=== PATIENT | male | born 1960 | race Caucasian/White ===

== ENCOUNTER 2019-05-08 19:10 | Emergency (ER) | payer OTHER, SELFPAY ==
[2019-05-08 19:30] VITALS: BP 167/89; PULSE 66; RESP 17; TEMP 36.5; O2SAT 100
--- NOTE | 2019-05-08 19:51 | ED.LOWEXIN ---
HPI - Extremity Injury (Lower) General Chief Complaint: Extremity Injury, Lower Stated Complaint: R/knee pain/Hip pain Time Seen by Provider: 05/08/19 19:45 Source: patient and RN notes reviewed Mode of arrival: ambulatory Limitations: no limitations History of Present Illness HPI Narrative: Patient presents today complaining of right leg and hip pain. He was getting into a truck and twisted his leg today while stepping up. Pain radiates to the posterior hip with ambulation. Denies numbness or tingling in the leg or foot. Currently rates his pain 3/10 at rest, which increases to 8/10 with ambulation. He has been taking Tylenol and [facility]. MD complaint: leg injury Related Data Home Medications Medication Instructions Recorded Confirmed bupropion HCl 150 mg PO BID 05/08/19 05/08/19 escitalopram oxalate 20 mg PO DAILY 05/08/19 05/08/19 fenofibrate nanocrystallized 145 mg PO DAILY 05/08/19 05/08/19 hydrochlorothiazide 25 mg PO DAILY 05/08/19 05/08/19 meloxicam 15 mg PO DAILY 05/08/19 05/08/19 metoprolol succinate 50 mg PO DAILY 05/08/19 05/08/19 Allergies Allergy/AdvReac Type Severity Reaction Status Date / Time No Known Allergies Allergy Verified 05/08/19 19:38 Review of Systems Review of Systems: Narrative: CONSTITUTIONAL: Denies body aches, fever, chills, or sweats. EYES: Denies visual changes, redness, or discharge. ENT: Denies rhinorrhea, congestion, sore throat, or otalgia. CARDIOVASCULAR: Denies chest pain, palpitations, or edema. RESPIRATORY: Denies cough or dyspnea. GASTROINTESTINAL: Denies abdominal pain, nausea, vomiting, or diarrhea. GENITOURINARY: Denies dysuria or hematuria. SKIN: Denies rash, itching, or wounds. MUSCULOSKELETAL: Denies back pain, joint pain. + Right upper leg pain NEUROLOGIC: Denies headache, numbness, tingling, or weakness. PSYCH: Denies depression or anxiety. PMFSH Comments At time of signature, I have reviewed and agree with nursing past medical, surgical, social and family history unless otherwise noted. Please see nursing chart for further information. There is no relevant family history pertinent to the presenting complaint Exam Narrative: Exam Narrative: GENERAL: Well-appearing, well-nourished, and in no acute distress. HEAD: Normocephalic, atraumatic. EYES: EOMI. No redness or drainage. Conjunctivae normal. ENT: Mucous membranes pink and moist. Nares clear. No rhinorrhea. TMs normal bilaterally. Throat normal. Uvula midline. NECK: Normal AROM. Supple. No lymphadenopathy. CHEST: No respiratory distress. Clear to auscultation. HEART: Regular rate and rhythm. No murmur appreciated. Normal peripheral pulses. ABDOMEN: Soft, nontender, nondistended, normal active bowel sounds. MUSCULOSKELETAL: No bony tenderness. EXTREMITIES: Soft tissue tenderness to the right posterior hip, lateral hip extending to the lateral thigh. No bony tenderness. Distal sensation intact. Capillary refill normal. Full AROM with increased pain. Foot push and pulls normal. SKIN: Warm, dry, no rash. NEURO: No focal deficits. Alert and oriented x3. Gait steady. PSYCH: Normal affect. No signs of depression or anxiety. Course Vital Signs Vital signs: Vital Signs Temperature 97.7 F 05/08/19 19:30 Pulse Rate 66 05/08/19 19:30 Respiratory Rate 17 05/08/19 19:30 Blood Pressure 167/89 H 05/08/19 19:30 Pulse Oximetry 100 05/08/19 19:30 Temperature 97.7 F 05/08/19 19:30 Pulse Rate 66 05/08/19 19:30 Respiratory Rate 17 05/08/19 19:30 Blood Pressure 167/89 H 05/08/19 19:30 Pulse Oximetry 100 05/08/19 19:30 Reviewed. Pt has been instructed to follow up with his PCP regarding his elevated blood pressure today. MDM - Extremity Injury (Lower) Differential Diagnosis Differential diagnosis: Likely other (Hip strain, knee strain, muscle strain, muscle spasm) Critical Care Time Critical Care Time Critical Care Time: No Discharge Plan Discharge Clinic
== END 2019-05-08 20:00 | disposition home or self-care (01) ==
PROVIDERS: Emergency Provider Nurse Practitioner
DX: S86.911A Strain of unspecified muscle(s) and tendon(s) at lower leg level, right leg, initial encounter (principal); X50.9XXA Other and unspecified overexertion or strenuous movements or postures, initial encounter; I10 Essential (primary) hypertension; F32.9 Major depressive disorder, single episode, unspecified
CPT/HCPCS: 99213; G0463

== ENCOUNTER 2020-01-03 16:39 | Emergency (ER) | payer OTHER, SELFPAY ==
[2020-01-03 16:50] VITALS: BP 166/89; PULSE 86; RESP 20; TEMP 36.9; O2SAT 99
--- NOTE | 2020-01-03 17:19 | ED.EXTPRO ---
HPI - Extremity Problem General Chief complaint: Extremity Injury, Lower Stated complaint: Left Knee Pain Time Seen by Provider: 01/03/20 17:02 Source: patient and RN notes reviewed Mode of arrival: ambulatory Limitations: no limitations History of Present Illness HPI Narrative: Patient presents today complaining of a 2-week history of left knee pain that has worsened over the last 4 days. States he does have significant arthritis in the left knee, but has never been told that he needs a knee replacement. He has been attempting to get into see an orthopedist, but has had some insurance changes recently and has not been able to get an appointment yet. Currently rates his pain 8?10. He has been trying ice, Tylenol, and takes meloxicam and Flexeril daily, none of which are helping. Pain wakes him up from sleep. Related Data Home Medications Medication Instructions Recorded Confirmed bupropion HCl 150 mg PO BID 05/08/19 05/08/19 escitalopram oxalate 20 mg PO DAILY 05/08/19 05/08/19 fenofibrate nanocrystallized 145 mg PO DAILY 05/08/19 05/08/19 hydrochlorothiazide 25 mg PO DAILY 05/08/19 05/08/19 meloxicam 15 mg PO DAILY 05/08/19 05/08/19 metoprolol succinate 50 mg PO DAILY 05/08/19 05/08/19 Allergies Allergy/AdvReac Type Severity Reaction Status Date / Time No Known Allergies Allergy Verified 05/08/19 19:38 Review of Systems Review of Systems: Narrative: CONSTITUTIONAL: Denies body aches, fever, chills, or sweats. EYES: Denies visual changes, redness, or discharge. ENT: Denies rhinorrhea, congestion, sore throat, or otalgia. CARDIOVASCULAR: Denies chest pain, palpitations, or edema. RESPIRATORY: Denies cough or dyspnea. GASTROINTESTINAL: Denies abdominal pain, nausea, vomiting, or diarrhea. GENITOURINARY: Denies dysuria or hematuria. SKIN: Denies rash, itching, or wounds. MUSCULOSKELETAL: Denies back pain, or myalgia + left knee pain. NEUROLOGIC: Denies headache, numbness, tingling, or weakness. PSYCH: Denies depression or anxiety. [facility] Past Medical History Medical History (Updated 01/03/20 @ 17:53 by Batsheva Mohamud, [employer], ) Degenerative disc disease Hypertension Osteoarthritis Comments At time of signature, I have reviewed and agree with nursing past medical, surgical, social and family history unless otherwise noted. Please see nursing chart for further information. There is no relevant family history pertinent to the presenting complaint Exam Narrative: Exam Narrative: GENERAL: Well-appearing, well-nourished, and in no acute distress. HEAD: Normocephalic, atraumatic. EYES: EOMI. No redness or drainage. Conjunctivae normal. ENT: Mucous membranes pink and moist. NECK: Normal AROM. CHEST: No respiratory distress. EXTREMITIES: Left knee: Tenderness to the medial joint line. No posterior knee tenderness. No lateral joint tenderness. No tenderness to the patellar tendon. No abnormal movement of the patella. No effusion or edema noted. No erythema or warmth noted. Distal sensation intact. Capillary refill normal. No color change noted. Full range of motion. SKIN: Warm, dry, no rash. Capillary refill normal. Normal skin turgor. NEURO: No focal deficits. Alert and oriented x3. Gait steady. PSYCH: Normal affect. No signs of depression or anxiety. Course Vital Signs Vital signs: Vital Signs Temperature 98.4 F 01/03/20 16:50 Pulse Rate 86 01/03/20 16:50 Respiratory Rate 20 01/03/20 16:50 Blood Pressure 166/89 H 01/03/20 16:50 Pulse Oximetry 99 01/03/20 16:50 Temperature 98.4 F 01/03/20 16:50 Pulse Rate 86 01/03/20 16:50 Respiratory Rate 20 01/03/20 16:50 Blood Pressure 166/89 H 01/03/20 16:50 Pulse Oximetry 99 01/03/20 16:50 Reviewed. Pt has been instructed to follow up with his PCP regarding his elevated blood pressure today. MDM - Extremity (Nontraumatic) Differential Diagnosis Differential diagnosis: Likely gout, cellulitis, lower extremity
== END 2020-01-03 17:28 | disposition home or self-care (01) ==
PROVIDERS: Emergency Provider Nurse Practitioner; PCP Family Medicine Sports Medicine
DX: M17.12 Unilateral primary osteoarthritis, left knee (principal); I10 Essential (primary) hypertension
CPT/HCPCS: 99213; G0463

== ENCOUNTER 2020-05-05 13:38 | Emergency (ER) | payer OTHER, SELFPAY ==
--- NOTE | ~2020-05-05 | XR_ITS ---
EXAMINATION: XR ankle RT min 3V, XR foot RT min 3V EXAM DATE: 05/05/2020 14:34 INDICATION: No known recent injury provided at this time. Pain of the right foot, ankle, heel. TECHNIQUE: Right foot dorsoplantar, lateral and oblique projections obtained and reviewed. Right ank le frontal, lateral and oblique projections obtained and reviewed. There is no prior study for geoff joshua. FINDINGS: Right metatarsal bones unremarkable. The right ankle mortise appears intact. Tiny infer ior calcaneal spur. There are no acute fractures or dislocations identified. There is no subcutaneou s gas. The soft tissue is unremarkable. There are no radiopaque foreign bodies. No periosteal roselia ction or band of sclerosis to suggest subacute stress fracture. There are no bony erosions identified . IMPRESSION: Tiny right calcaneal inferior spur. Reviewed, dictated and finalized at location B. L LAYER IMPRESSION: Tiny right calcaneal inferior spur.
[2020-05-05 13:41] VITALS: BP 144/78; PULSE 74; RESP 20; TEMP 36.3; O2SAT 97
--- NOTE | 2020-05-05 15:21 | ED.GENADULT ---
HPI - General Adult General Chief complaint: Extremity Injury, Lower Stated complaint: r ankle pain Time Seen by Provider: 05/05/20 13:48 Source: patient Mode of arrival: ambulatory Limitations: no limitations History of Present Illness HPI narrative: Patient is a 60-year-old male who presents with several days duration of right heel pain noting pain localized to the plantar surface and posterior aspect of the right heel denies injury or trauma or similar occurrence pain is worse with weightbearing and running. Patient denies redness swelling or deformity or radiation of pain Related Data Home Medications Medication Instructions Recorded Confirmed bupropion HCl 150 mg PO BID 05/08/19 05/08/19 escitalopram oxalate 20 mg PO DAILY 05/08/19 05/08/19 fenofibrate nanocrystallized 145 mg PO DAILY 05/08/19 05/08/19 hydrochlorothiazide 25 mg PO DAILY 05/08/19 05/08/19 meloxicam 15 mg PO DAILY 05/08/19 05/08/19 metoprolol succinate 50 mg PO DAILY 05/08/19 05/08/19 allopurinol 05/05/20 05/05/20 amlodipine 05/05/20 Allergies Allergy/AdvReac Type Severity Reaction Status Date / Time No Known Allergies Allergy Verified 05/05/20 13:46 Review of Systems Review of Systems: All systems reviewed & are unremarkable except as noted in HPI and below PMFSH Past Medical History Medical History Degenerative disc disease Hypertension Osteoarthritis Social History Social History Gender identity (if verbalized by the patient): Male Exam Narrative: Exam Narrative: GENERAL: Well-appearing, well-nourished, and in no acute distress. HEAD: Normocephalic, atraumatic. EYES: PERRLA and EOMI. ENT: Nares clear, no rhinorrhea or epistaxis. Mucous membranes moist. EXTREMITIES: Normal range of motion. No edema. Tenderness of the right posterior and plantar aspect of the heel no other deformities or findings noted on exam SKIN: Warm, dry, no rash. NEURO: No focal deficits. Alert and oriented x3. Neurovascularly intact PSYCH: Normal mood and affect. Course Course Emergency Course: Patient evaluated in the emergency department found to have heel spurs the likely etiology of his symptoms will be discharged with podiatry follow-up Vital Signs Vital signs: Vital Signs Temperature 97.4 F L 05/05/20 13:41 Pulse Rate 74 05/05/20 13:41 Respiratory Rate 20 05/05/20 13:41 Blood Pressure 144/78 H 05/05/20 13:41 Pulse Oximetry 97 05/05/20 13:41 Temperature 97.4 F L 05/05/20 13:41 Pulse Rate 74 05/05/20 13:41 Respiratory Rate 20 05/05/20 13:41 Blood Pressure 144/78 H 05/05/20 13:41 Pulse Oximetry 97 05/05/20 13:41 Medical Decision Making MDM Narrative Medical decision making narrative: Patients injury or pain is consistent with musculoskeletal etiology. No signs of neurological or vascular compromise on exam. Compartments and tisues are soft without signs of compartment syndrome. Pain is felt appropriate for further evaluation on an outpatient basis. Vital Signs Vital Signs: Vital Signs Temperature 97.4 F L 05/05/20 13:41 Pulse Rate 74 05/05/20 13:41 Respiratory Rate 20 05/05/20 13:41 Blood Pressure 144/78 H 05/05/20 13:41 Pulse Oximetry 97 05/05/20 13:41 Temperature 97.4 F L 05/05/20 13:41 Pulse Rate 74 05/05/20 13:41 Respiratory Rate 20 05/05/20 13:41 Blood Pressure 144/78 H 05/05/20 13:41 Pulse Oximetry 97 05/05/20 13:41 Imaging Data Radiologist's impression: ITS Impressions Ankle X-Ray 05/05/20 14:38 IMPRESSION: Tiny right calcaneal inferior spur. Foot X-Ray 05/05/20 14:38 IMPRESSION: Tiny right calcaneal inferior spur. Discharge Plan Discharge Clinical Impression: Acute right ankle pain Patient Disposition: Home, Self-Care Condition: Stable Instructions: Antibiotic Form, Arthralgia (ED) Additional Instru
== END 2020-05-05 15:46 | disposition home or self-care (01) ==
PROVIDERS: Emergency Provider Emergency Medicine; PCP Family Medicine Sports Medicine
DX: M25.571 Pain in right ankle and joints of right foot (principal); I10 Essential (primary) hypertension; M19.90 Unspecified osteoarthritis, unspecified site
CPT/HCPCS: 73610; 73630; 99283

== ENCOUNTER 2021-05-26 13:50 | Emergency (ER) | payer OTHER, SELFPAY ==
[2021-05-26 14:42] VITALS: BP 130/84; PULSE 71; RESP 20; TEMP 36.6; O2SAT 100
--- NOTE | 2021-05-26 14:43 | ED.EAR ---
HPI - Ear Problem General Chief complaint: Ear Stated complaint: Left Ear Pain Time Seen by Provider: 05/26/21 14:43 Source: patient Mode of arrival: ambulatory Limitations: no limitations History of Present Illness HPI Narrative: 61-year-old male presents with left ear pain for 2 weeks. History of psoriasis, psoriasis rash around ears and inside ears. States that he applies Vaseline. Has used steroid cream and does not help. Now has pain to neck below left ear. Afebrile Systems reviewed and negative except as noted above. Related Data Home Medications Medication Instructions Recorded Confirmed bupropion HCl 150 mg PO BID 05/08/19 05/08/19 escitalopram oxalate 20 mg PO DAILY 05/08/19 05/08/19 fenofibrate nanocrystallized 145 mg PO DAILY 05/08/19 05/08/19 hydrochlorothiazide 25 mg PO DAILY 05/08/19 05/08/19 meloxicam 15 mg PO DAILY 05/08/19 05/08/19 metoprolol succinate 50 mg PO DAILY 05/08/19 05/08/19 allopurinol 05/05/20 05/05/20 amlodipine 05/05/20 hydrochlorothiazide 05/26/21 Allergies Allergy/AdvReac Type Severity Reaction Status Date / Time No Known Allergies Allergy Verified 05/05/20 13:46 Review of Systems Review of Systems: CONSTITUTIONAL: Denies fever, chills, or sweats. EYES: Denies visual changes, redness, or discharge. ENT: Denies rhinorrhea, congestion, sore throat. Reports left ear pain CARDIOVASCULAR: Denies chest pain, palpitations, or edema. RESPIRATORY: Denies cough or dyspnea. GASTROINTESTINAL: Denies abdominal pain, nausea, vomiting, or diarrhea. GENITOURINARY: Denies dysuria or hematuria. SKIN: Reports psoriasis rash. MUSCULOSKELETAL: Denies back pain, joint pain, or myalgia. NEUROLOGIC: Denies headache, numbness, or weakness. PSYCHIATRIC: Denies anxiety or depression. All other systems reviewed are negative, except as documented in HPI. [facility] Past Medical History Medical History Degenerative disc disease Hypertension Osteoarthritis Social History Social History Gender identity (if verbalized by the patient): Male Comments At time of signature, agree with nursing past medical, surgical, social and family history. There is no relevant family history pertinent to the presenting complaint. Exam Narrative: GENERAL: This is a well-nourished, well-developed patient, in no apparent distress. HEAD: normocephalic, atraumatic. EYES: PERRL. Sclera clear/white. Vision is grossly intact. EARS: Erythematous psoriasis plaques behind ears, psoriasis rash to both canals. Left canal is swollen, erythematous, yellow drainage. Patient has left-sided postauricular lymph node swelling. NOSE: External nose normal with no obvious nasal discharge, nares without redness, no rhinorrhea. THROAT: Mucous membranes moist, posterior pharynx clear. NECK: Neck supple, non-tender without lymphadenopathy, masses or thyromegaly. CARDIOVASCULAR: Regular rate and rhythm without murmurs, gallops, or rubs. RESPIRATORY: Clear to auscultation. Breath sounds equal bilaterally. No wheezes, rales, or rhonchi. GASTROINTESTINAL: Abdomen soft, non-tender, nondistended. Bowel sounds are active. No hepato-splenomegaly, or palpable masses. No guarding. SKIN: warm, Dry, intact with no suspicious lesions or rash, good texture and turgor. NEURO: awake, alert, and oriented to person, place and time. There were no obvious focal neurologic abnormalities. EXTREMITIES: No joint tenderness, effusion, or edema noted. No calf tenderness. Negative Homans sign bilaterally. BACK: Nontender without deformity. No CVA tenderness. Course Course Level of Care: Express Care Visit Vital Signs Vital signs: Reviewed Medical Decision Making MDM Narrative Medical decision making narrative: Patient is aware of diagnosis, understands and agrees to treatment plan. Anticipatory guidance given. Patient agrees to follow-up as directed and
== END 2021-05-26 15:04 | disposition home or self-care (01) ==
PROVIDERS: Emergency Provider Nurse Practitioner Family; PCP Family Medicine Sports Medicine
DX: H60.92 Unspecified otitis externa, left ear (principal); I10 Essential (primary) hypertension; M19.90 Unspecified osteoarthritis, unspecified site; L40.9 Psoriasis, unspecified
CPT/HCPCS: 99213; G0463

== ENCOUNTER 2021-06-22 16:05 | Emergency (ER) | payer OTHER, SELFPAY ==
--- NOTE | ~2021-06-22 | XR_ITS ---
EXAM: XR knee LT 3V HISTORY: pain ant Lt knee x 2 days; no injury COMPARISON: None. FINDINGS: Subjectively decreased mineralization. Severe medial joint space narrowing. Cortical irreg ularity along the articular surfaces of the medial and lateral condyles, may represent osteochondral defects. Moderate tricompartmental osteophytosis. No acute fracture or dislocation. IMPRESSION: No acute osseous finding in the left knee. Reviewed, dictated and finalized at location K.
[2021-06-22 17:15] VITALS: BP 134/93; PULSE 93; RESP 18; TEMP 36.4; O2SAT 99
--- NOTE | 2021-06-22 17:59 | ED.LOWEXIN ---
HPI - Extremity Injury (Lower) General Chief Complaint: Extremity Injury, Lower Stated Complaint: left lower leg pain Time Seen by Provider: 06/22/21 17:12 Source: patient Mode of arrival: ambulatory Limitations: no limitations History of Present Illness HPI Narrative: Patient is 61 years old white male presents to the ED with nontraumatic pain distal to the left knee started yesterday morning. Patient report there is a possibility of trauma and he is not aware of it. Patient denies any fever, chills, nausea, vomiting. Pain worse if you try to flex the knee, better stretch knee. Related Data Home Medications Medication Instructions Recorded Confirmed bupropion HCl 150 mg PO BID 05/08/19 05/08/19 escitalopram oxalate 20 mg PO DAILY 05/08/19 05/08/19 fenofibrate nanocrystallized 145 mg PO DAILY 05/08/19 05/08/19 hydrochlorothiazide 25 mg PO DAILY 05/08/19 05/08/19 meloxicam 15 mg PO DAILY 05/08/19 05/08/19 metoprolol succinate 50 mg PO DAILY 05/08/19 05/08/19 allopurinol 05/05/20 05/05/20 amlodipine 05/05/20 hydrochlorothiazide 05/26/21 Allergies Allergy/AdvReac Type Severity Reaction Status Date / Time No Known Allergies Allergy Verified 06/22/21 17:15 Review of Systems Review of Systems: CONSTITUTIONAL: Denies fever, chills, or sweats. EYES: Denies visual changes, redness, or discharge. ENT: Denies rhinorrhea, congestion, sore throat, or otalgia. CARDIOVASCULAR: Denies chest pain, palpitations, or edema. RESPIRATORY: Denies cough or dyspnea. GASTROINTESTINAL: Denies abdominal pain, nausea, vomiting, or diarrhea. GENITOURINARY: Denies dysuria or hematuria. SKIN: Denies rash or itching. MUSCULOSKELETAL: Denies back pain, joint pain, or myalgia. NEUROLOGIC: Denies headache, numbness, or weakness. PSYCHIATRIC: Denies anxiety or depression. [facility] Past Medical History Medical History Degenerative disc disease Hypertension Osteoarthritis Social History Social History Gender identity (if verbalized by the patient): Male Exam Narrative: General appearance: Well-developed, well-nourished Skin: Normal color Head: Normocephalic, nontraumatic Eyes: Clear conjunctiva Chest and respiratory: Airway patent, no respiratory distress, no accessory muscle use Heart: Regular rate/rhythm Vascular: Normal peripheral pulses, normal capillary refill. Musculoskeletal: Diffuse tenderness infrapatellar area, slightly warm, erythematous consistent with erythematous or tendinitis. Neurologic: Alert and oriented ?3, [employer] is normal as tested, no gross motor deficit Course Course Emergency Course: Stable Physical exam showed severe tenderness, erythematous changes, warmth to touch, consistent with cellulitis versus tendinitis. Vital Signs Vital signs: Vital Signs Temperature 36.4 C 06/22/21 17:15 Pulse Rate 93 06/22/21 17:15 Respiratory Rate 18 06/22/21 17:15 Blood Pressure 134/93 H 06/22/21 17:15 Pulse Oximetry 99 06/22/21 17:15 Temperature 36.4 C 06/22/21 17:15 Pulse Rate 93 06/22/21 17:15 Respiratory Rate 18 06/22/21 17:15 Blood Pressure 134/93 H 06/22/21 17:15 Pulse Oximetry 99 06/22/21 17:15 MDM - Extremity Injury (Lower) Imaging Data Radiologist's impression: Impressions Knee X-Ray 06/22/21 17:36 IMPRESSION: No acute osseous finding in the left knee. Critical Care Time Critical Care Time Critical Care Time: No Discharge Plan Discharge Clinical Impression: Cellulitis Qualifiers: Site of cellulitis: other site Qualified Code(s): L03.818 - Cellulitis of other site
[2021-06-22 18:07] VITALS: BP 142/86; PULSE 84; RESP 16; O2SAT 99
== END 2021-06-22 18:09 | disposition home or self-care (01) ==
PROVIDERS: Emergency Provider Emergency Medicine; PCP Family Medicine Sports Medicine
DX: L03.116 Cellulitis of left lower limb (principal)
CPT/HCPCS: 73562; 99283

== ENCOUNTER 2022-02-27 17:30 | Emergency (ER) | payer OTHER, SELFPAY ==
--- NOTE | ~2022-02-27 | CT_ITS ---
EXAMINATION: CT abdomen pelvis w con DATE: 02/27/2022 20:45 INDICATION: Left lower quadrant abdominal pain. Left flank pain. Nausea. TECHNIQUE: Computed tomography (CT) of the abdomen and pelvis was performed with 100 mL Omnipaque-350 intravenous contrast. Automated exposure control and iterative reconstruction technique were employe d. The dose-length product was 1394.41 mGy-cm. COMPARISON: None FINDINGS: Mild emphysema at the bilateral lower lung zones. Mild discoid atelectasis at the lingula. No pericar dial effusion. Heart size is normal. Small pericardial effusion. Liver, gallbladder pancreas and fco ateral adrenal glands are normal. Couple small splenic calcifications consistent with old granulomato us disease. Bilateral renal lesions demonstrating greater than simple fluid attenuation. Bilateral ne phrolithiasis with 1.5 cm nonobstructing staghorn calculus in an upper pole calyx of the right kidney . 10 mm at least partially obstructing stone at the left ureteropelvic junction with mild left hydron ephrosis. There is inflammatory stranding surrounding the left renal pelvis. Bladder is normal. There are few scattered clonic diverticula without adjacent inflammatory stranding to suggest diverticulit is. Small bowel and appendix are normal. No free intraperitoneal gas or fluid. No pathologically enla rged abdominal or pelvic lymphadenopathy. Severe lumbar and moderate lower thoracic spondylosis. IMPRESSION: 1. Bilateral nephrolithiasis with at least partially obstructing 2 mm stone at the left ureteropelvic junction with mild left hydroureteronephrosis and stranding about the renal pelvis. Correlate with u rinalysis to exclude associated urinary tract infection. 2. Small pericardial effusion. Reviewed, dictated and finalized at location A. [employer] IMPRESSION: 1. Bilateral nephrolithiasis with at least partially obstructing 2 mm stone at the left ureteropelvic junction with mild left hydroureteronephrosis and strand ing about the renal pelvis. Correlate with urinalysis to exclude associated uri nary tract infection. 2. Small pericardial effusion.
--- NOTE | ~2022-02-27 | XR_ITS ---
EXAMINATION: XR abdomen/kub 1V INDICATION: Left ureteropelvic junction stone TECHNIQUE: Supine views of the abdomen were obtained on 2 radiographs. COMPARISON: CT of the same date FINDINGS: Contrast from earlier CT examination partially opacifies the urinary tract. The known left ureteropelvic junction stone is partially obscured by contrast material. There is a 12 mm calculus in the right kidney upper pole. The bowel gas pattern is normal. There is moderate lumbar spondylosis. IMPRESSION: 1. Known left ureteropelvic junction stone obscured by contrast material. 2. Right nephrolithiasis. Reviewed, dictated and finalized at location A. [employer]
[2022-02-27 17:42] VITALS: BP 151/99; PULSE 86; RESP 20; TEMP 36.6; O2SAT 100
[2022-02-27 17:58] LABS: Basophils Percent Auto 0.4 % (0.2-1.2); Eosinophils Absolute Auto 0.3 K/mm3 (0-0.3); Eosinophils Percent Auto 3.2 % (0-4.4); Hematocrit 45.8 % (42.0-52.0); Hemoglobin 15.3 g/dL (14.0-18.0); Immature Granulocyte Absolute 0.04 K/mm3 (0.00-0.031); Immature Granulocyte Percent A 0.5 % (0-0.5); Lymphocytes Absolute Auto 0.86 K/mm3 (0.9-3.2); Lymphocytes Percent Auto 11.1 % (18.3-44.2); Mean Corpuscular HGB Conc 33.4 g/dl (32-36); Mean Corpuscular Hemoglobin 29.9 pg (26-34); Mean Corpuscular Volume 89.6 fl (80-100); Mean Platelet Volume 9.5 fl (7.4-10.4); Monocytes Absolute Auto 0.4 K/mm3 (0.1-0.6); Neutrophils Absolute Auto 6.2 K/mm3 (1.3-6.7); Neutrophils Percent Auto 79.8 % (45.5-73.1); Platelet Count Result 229 k/mm3 (150-375); Red Blood Count 5.11 M/mm3 (4.6-6.20); Red Cell Distribution Width 14.3 % (11.5-14.5); White Blood Count 7.7 K/mm3 (4.5-10.0)
[2022-02-27 17:59] LABS: Add Urine Microscopic? YES; Appearance Urine Cloudy (Clear); Bilirubin Urine Negative (Negative); Blood Urine 2+ (Negative); Color Urine Yellow (Yellow); Glucose Urine UA Negative (Negative); Ketones Urine Negative (Negative); Leukocyte Esterase Ur Trace LEU/UL (Negative); Nitrate Urine Negative (Negative); Protein Urine Trace mg/dL (Negative); Specific Grav Ur 1.025 (1.001-1.035); Urobilinogen Urine 0.2 mg/dL (<2.0); pH Urine 6.5 (5.0-9.0)
[2022-02-27 18:03] LABS: Mucus Urine Rare /lpf; RBC Urine >75 /hpf (0-2); WBC Urine 0-3 /hpf
[2022-02-27 18:10] LABS: Alanine Aminotransferase 19 U/L (6-50); Albumin Level 4.4 g/dL (3.5-5.1); Alkaline Phosphatase 63 U/L (38-126); Anion Gap 6 mmol/L (8-16); Aspartate Amino Transferase 22 U/L (17-59); Bilirubin,Total 0.4 mg/dL (0.2-1.3); Blood Urea Nitrogen 27 mg/dL (9-20); Calcium 9.3 mg/dL (8.4-10.2); Carbon Dioxide 27 mmol/L (22-30); Chloride 105 mmol/L (98-107); Estimated CRCL calculation 60 ml/min; Estimated Glomerular Filt Rate 51; Glucose 124 mg/dL (65-110); Lipase 57 U/L (23-300); Potassium 4.1 mmol/L (3.4-5.0); Sodium 138 mmol/L (137-145)
--- NOTE | 2022-02-27 19:16 | PC.NURSE ---
patient report received from Navdeep COULTER at this time
--- NOTE | 2022-02-27 19:26 | ED.ABDPAIN ---
HPI - Abdominal Pain General Chief Complaint: Abdominal Pain Stated Complaint: lower abd pain Time Seen by Provider: 02/27/22 18:28 Source: patient Mode of arrival: ambulatory Limitations: no limitations History of Present Illness HPI narrative: Patient is a 61 y/o male who presents to the ED with c/o L sided abdominal pain. Patient reports he developed pain in his left lower/lateral abdomen approximately 2.5 hours ago. He states the pain began suddenly and was very severe. He did not take anything for the pain. Pain is mildly improved currently. He also reported having nausea, but denies vomiting. Denies fever, diarrhea, constipation, dysuria, hematuria. He does note having slight urinary frequency over the last couple days. He has a remote history of a kidney stone, but states this pain was much more severe. Denies history of diverticulitis. He has had a colonoscopy previously. Related Data Home Medications Medication Instructions Recorded Confirmed bupropion HCl 150 mg tablet,12 hr 150 mg PO BID 05/08/19 05/08/19 sustained-release escitalopram oxalate 20 mg tablet 20 mg PO DAILY 05/08/19 05/08/19 fenofibrate nanocrystallized 145 145 mg PO DAILY 05/08/19 05/08/19 mg tablet hydrochlorothiazide 25 mg tablet 25 mg PO DAILY 05/08/19 05/08/19 meloxicam 15 mg tablet 15 mg PO DAILY 05/08/19 05/08/19 metoprolol succinate 50 mg 50 mg PO DAILY 05/08/19 05/08/19 tablet,extended release 24 hr allopurinol 300 mg tablet 05/05/20 05/05/20 amlodipine 5 mg tablet 05/05/20 hydrochlorothiazide 12.5 mg tablet 05/26/21 Allergies Allergy/AdvReac Type Severity Reaction Status Date / Time No Known Allergies Allergy Verified 02/27/22 17:31 Review of Systems Review of Systems: CONSTITUTIONAL: Denies fever, chills, or sweats. CARDIOVASCULAR: Denies chest pain. RESPIRATORY: Denies dyspnea. GASTROINTESTINAL: Reports nausea, left-sided abdominal pain. Denies constipation, vomiting, or diarrhea. GENITOURINARY: Reports urinary frequency. Denies dysuria or hematuria. SKIN: Denies rash or itching. All systems reviewed & are unremarkable except as noted in HPI and below PMFSH Past Medical History Medical History Degenerative disc disease History of kidney stones Hypertension Osteoarthritis Surgical History Surgical History No pertinent past surgical history Social History Social History (Updated 02/27/22 @ 19:54 by Coco Valdez PA-C) Smoking status: Never smoker Gender identity (if verbalized by the patient): Male Exam Narrative: GENERAL: Well appearing, obese, non-toxic, in no acute distress. HEAD: Normocephalic, atraumatic. NECK: Supple. No adenopathy, no masses. RESPIRATORY: Airway patent, respirations nonlabored. Clear to auscultation bilaterally, no rales, rhonchi, wheezing. CARDIOVASCULAR: Regular rate and rhythm without murmurs, rubs, or gallops. Peripheral pulses 2+ and equal bilaterally. ABDOMINAL: Abdomen appears slightly distended, but soft. Mildly tender in suprapubic region, left lower quadrant, left lateral abdomen, left mid abdomen. No hepatosplenomegaly. Normoactive BS. MUSCULOSKELETAL: Moves all extremities. Strength/ROM intact without gross deformities. SKIN: Warm, dry, normal color. No rashes. NEURO: A&O X3. Speech clear. Cranial nerves II-XII grossly intact. Steady gait. No ataxic movements. PSYCHIATRIC: Appropriate mood and affect. Normal interaction. Course Vital Signs Vital signs: Vital Signs Temperature 97.9 F 02/27/22 17:42 Pulse Rate 86 02/27/22 17:42 Respiratory Rate 20 02/27/22 17:42 Blood Pressure 151/99 H 02/27/22 17:42 Pulse Oximetry 100 02/27/22 17:42 Oxygen Delivery Room Air 02/27/22 17:42 Temperature 97.9 F 02/27/22 17:42 Pulse Rate 86 02/27/22 21:09 Respiratory Rate 18 02/27/22 21:09 Blood Pressure 161/93 H
[2022-02-27] MEDS: SODIUM CHLORIDE 0.9% IV 1,000 ML 999 ML IV CONT (21:02)
[2022-02-27] MEDS: ONDANSETRON INJ 4 MG/2 ML VIAL IV PUSH (21:02)
[2022-02-27] MEDS: MORPHINE SULFATE (*CRX) 4 MG/ML INJ IV PUSH (21:02)
[2022-02-27 21:09] VITALS: BP 161/93; PULSE 86; RESP 18; O2SAT 98
--- NOTE | 2022-02-27 22:21 | PC.NURSE ---
Talked to Gerda in lab at 22:21 to add on Manish
[2022-02-27] MEDS: TAMSULOSIN HCL 0.4 MG CAPSULE PO (22:49)
== END 2022-02-27 23:10 | disposition home or self-care (01) ==
PROVIDERS: Emergency Medicine; Emergency Provider Physician Assistant; PCP Family Medicine Sports Medicine
DX: N13.2 Hydronephrosis with renal and ureteral calculous obstruction (principal); I10 Essential (primary) hypertension; Z87.442 Personal history of urinary calculi; M19.90 Unspecified osteoarthritis, unspecified site
CPT/HCPCS: 36415; 74018; 74177; 80053; 81001; 83690; 85025; 87086; 96361; 96374; 96375; 99284; A9270; J2270; J2405; J7030; Q9967

== ENCOUNTER 2022-08-30 20:40 | Emergency (ER) | payer OTHER, SELFPAY ==
[2022-08-30 20:48] VITALS: BP 146/90; PULSE 87; RESP 18; TEMP 36.4; O2SAT 98
[2022-08-30 22:55] VITALS: BP 162/98; PULSE 72; RESP 16; O2SAT 99
--- NOTE | 2022-08-30 23:31 | PC.NURSE ---
This RN assumed care of patient.
--- NOTE | 2022-08-30 23:43 | ED.SKABFB ---
HPI - Skin/Abscess/Foreign Bdy General Chief complaint: Skin/Abscess/Foreign Body Stated complaint: skin irritation Time Seen by Provider: 08/30/22 22:52 History of Present Illness HPI narrative: This is a 63M who denies past medical history who presents to the ED complaining of spreading redness of the right forearm for the past day. He was seen by his primary care doctor today and prescribed Bactrim for cellulitis. Approximately 2 hours later he noticed a linear redness extending up the arm and was told by his to come to the emergency department. He complains of itching at the site and mild dull pain. Related Data Home Medications Medication Instructions Recorded Confirmed bupropion HCl 150 mg tablet,12 hr 150 mg PO BID 05/08/19 05/08/19 sustained-release escitalopram oxalate 20 mg tablet 20 mg PO DAILY 05/08/19 05/08/19 fenofibrate nanocrystallized 145 145 mg PO DAILY 05/08/19 05/08/19 mg tablet hydrochlorothiazide 25 mg tablet 25 mg PO DAILY 05/08/19 05/08/19 meloxicam 15 mg tablet 15 mg PO DAILY 05/08/19 05/08/19 metoprolol succinate 50 mg 50 mg PO DAILY 05/08/19 05/08/19 tablet,extended release 24 hr allopurinol 300 mg tablet 05/05/20 05/05/20 amlodipine 5 mg tablet 05/05/20 hydrochlorothiazide 12.5 mg tablet 05/26/21 Allergies Allergy/AdvReac Type Severity Reaction Status Date / Time No Known Allergies Allergy Verified 08/30/22 20:42 Review of Systems Review of Systems: CONSTITUTIONAL: Denies fever, chills, or sweats CARDIOVASCULAR: Denies chest pain, palpitations, or edema. RESPIRATORY: Denies cough or dyspnea. GASTROINTESTINAL: Denies abdominal pain, nausea, vomiting, or diarrhea. GENITOURINARY: Denies dysuria or hematuria. SKIN: Spreading redness and itching of the right arm. MUSCULOSKELETAL: Denies back pain, joint pain, or myalgia. NEUROLOGIC: Denies headache, numbness, dizziness, or weakness. PSYCHIATRIC: Denies anxiety or depression. [facility] Past Medical History Medical History Degenerative disc disease History of kidney stones Hypertension Osteoarthritis Surgical History Surgical History No pertinent past surgical history Social History Social History Smoking status: Never smoker Gender identity (if verbalized by the patient): Male Exam Narrative: GENERAL: Well-developed, well-nourished, and in no acute distress. HEAD: Normocephalic, atraumatic. EYES: PERRLA and EOMI. CHEST: Clear to auscultation. ?No respiratory distress. ?No wheezes rales or rhonchi HEART: Regular rate and rhythm. ?No murmur heard. ?Normal peripheral pulses. ABDOMEN: Soft, nontender, nondistended, normal active bowel sounds. EXTREMITIES: No noted lymphadenopathy of the right arm. Normal range of motion. ?No edema. SKIN: A circular area of erythema and mild induration of the right antecubital space without fluctuance. There is there is a linear extension laterally then superiorly from the same that appears consistent with lymphangitis. The skin is otherwise warm, dry, no rash. NEURO: No focal deficits. ?Alert and oriented x3.PSYCH: Normal mood and affect. Course Course Emergency Course: 00:12 - The patient was given 1 g of Rocephin IV. Will discharge with recommendation to continue Bactrim as previously prescribed and follow-up with his primary care doctor tomorrow (August 31) at 16:00. Discussed return and emergency precautions including signs/symptoms of sepsis and respiratory distress. The patient voiced understanding and is comfortable with the plan. All questions answered to his satisfaction. Vital Signs Vital signs: Vital Signs Temperature 97.6 F 08/30/22 20:48 Pulse Rate 87 08/30/22 20:48 Respiratory Rate 18 08/30/22 20:48 Blood Pressure 146/90 H 08/30/22 20:48 Pulse Oximetry 98 08/30/22 20:48 Oxy
[2022-08-31 01:23] VITALS: BP 162/96; PULSE 90; RESP 15; O2SAT 100
== END 2022-08-31 01:25 | disposition home or self-care (01) ==
PROVIDERS: Emergency Provider Preventive Medicine Aerospace Medicine; PCP Family Medicine Sports Medicine
DX: L03.113 Cellulitis of right upper limb (principal); I10 Essential (primary) hypertension; M19.90 Unspecified osteoarthritis, unspecified site; Z87.442 Personal history of urinary calculi
CPT/HCPCS: 96365; 99284; J0696

== ENCOUNTER 2022-08-31 17:02 | Emergency (ER) | payer OTHER, SELFPAY ==
[2022-08-31 17:33] VITALS: BP 160/86; PULSE 95; RESP 18; TEMP 36.5; O2SAT 98
--- NOTE | 2022-08-31 20:22 | ED.WOUNDLAC ---
HPI - Wound/Laceration General Chief Complaint: Wound/Laceration Stated Complaint: wound right arm Time Seen by Provider: 08/31/22 20:12 History of Present Illness HPI narrative: Patient is a 62-year-old male presenting with soft tissue infection. Patient states that he received some immunizations yesterday. States that shortly afterwards he noticed an area of redness on his right forearm. He was seen by his PCP who diagnosed him with cellulitis and prescribed Bactrim. Patient states that he did not get the Bactrim filled but his made him come into the ER last night as she noticed a red streak up his arm. He was given a dose of IV antibiotics and sent home. This morning he followed up with his PCP. States that he took his first dose of Bactrim this morning prior to his PCP appointment. At his PCP appointment, they were concerned that the redness had spread slightly so they advised she come in for further evaluation. He denies any systemic symptoms. He denies any pain. He actually denies any complaints at this time. Related Data Home Medications Medication Instructions Recorded Confirmed bupropion HCl 150 mg tablet,12 hr 150 mg PO BID 05/08/19 05/08/19 sustained-release escitalopram oxalate 20 mg tablet 20 mg PO DAILY 05/08/19 05/08/19 fenofibrate nanocrystallized 145 145 mg PO DAILY 05/08/19 05/08/19 mg tablet hydrochlorothiazide 25 mg tablet 25 mg PO DAILY 05/08/19 05/08/19 meloxicam 15 mg tablet 15 mg PO DAILY 05/08/19 05/08/19 metoprolol succinate 50 mg 50 mg PO DAILY 05/08/19 05/08/19 tablet,extended release 24 hr allopurinol 300 mg tablet 05/05/20 05/05/20 amlodipine 5 mg tablet 05/05/20 hydrochlorothiazide 12.5 mg tablet 05/26/21 Allergies Allergy/AdvReac Type Severity Reaction Status Date / Time No Known Allergies Allergy Verified 08/30/22 20:42 Review of Systems Review of Systems: All systems reviewed & are unremarkable except as noted in HPI and below PMFSH Past Medical History Medical History Degenerative disc disease History of kidney stones Hypertension Osteoarthritis Surgical History Surgical History No pertinent past surgical history Social History Social History Smoking status: Never smoker Gender identity (if verbalized by the patient): Male Exam Narrative: GENERAL: Well-appearing, well-nourished, and in no acute distress. HEAD: Normocephalic, atraumatic. EYES: PERRLA and EOMI. ENT: Nares clear, no rhinorrhea or epistaxis. Mucous membranes moist. NECK: Supple. CHEST: No respiratory distress. HEART: Regular rate and rhythm. Normal peripheral pulses. ABDOMEN: Soft, nondistended EXTREMITIES: Normal range of motion. No edema. SKIN: Warm, dry, 3-4cm area of erythema and induration on R anterior forearm with mild lymphangitic spread; black line outlining the area with small amount of redness beyond the line at distal aspect; no crepitus; compartments are all soft/nontender NEURO: No focal deficits. Alert and oriented x3. PSYCH: Normal mood and affect. Course Vital Signs Vital signs: Vital Signs Temperature 97.7 F 08/31/22 17:33 Pulse Rate 95 08/31/22 17:33 Respiratory Rate 18 08/31/22 17:33 Blood Pressure 160/86 H 08/31/22 17:33 Pulse Oximetry 98 08/31/22 17:33 Oxygen Delivery Room Air 08/31/22 17:33 Temperature 98.4 F 08/31/22 21:34 Pulse Rate 84 08/31/22 21:34 Respiratory Rate 16 08/31/22 21:34 Blood Pressure 154/78 H 08/31/22 21:34 Pulse Oximetry 98 08/31/22 21:34 Oxygen Delivery Room Air 08/31/22 17:33 MDM - Wound/Laceration MDM Narrative Medical decision making narrative: Patient is a 62-year-old male presenting with concerns for right arm cellulitis. Vitals within normal limits. Patient is well-appearing and in no acute distre
[2022-08-31] MEDS: SULFAMETHOXAZOLE/TRIMETHOPRIM 800/160 MG DS TABLET 1 TAB PO (20:33)
--- NOTE | 2022-08-31 20:42 | PC.NURSE ---
Per MD Rodrigues, no need for blood cultures prior to antibiotics.
[2022-08-31 20:57] LABS: Basophils Percent Auto 0.1 % (0.2-1.2); Hematocrit 44.2 % (42.0-52.0); Hemoglobin 14.9 g/dL (14.0-18.0); Immature Granulocyte Absolute 0.02 K/mm3 (0.00-0.031); Immature Granulocyte Percent A 0.3 % (0-0.5); Lymphocytes Absolute Auto 0.65 K/mm3 (0.9-3.2); Mean Corpuscular HGB Conc 33.7 g/dl (32-36); Mean Corpuscular Hemoglobin 30.3 pg (26-34); Mean Corpuscular Volume 89.8 fl (80-100); Mean Platelet Volume 9.5 fl (7.4-10.4); Monocytes Absolute Auto 0.3 K/mm3 (0.1-0.6); Monocytes Percent Auto 3.5 % (2.6-8.5); Neutrophils Absolute Auto 6.3 K/mm3 (1.3-6.7); Neutrophils Percent Auto 87.1 % (45.5-73.1); Platelet Count Result 237 k/mm3 (150-375); Red Blood Count 4.92 M/mm3 (4.6-6.20); Red Cell Distribution Width 13.7 % (11.5-14.5); White Blood Count 7.2 K/mm3 (4.5-10.0)
[2022-08-31 21:10] LABS: Anion Gap 6 mmol/L (8-16); Blood Urea Nitrogen 32 mg/dL (9-20); Calcium 9.3 mg/dL (8.4-10.2); Carbon Dioxide 28 mmol/L (22-30); Chloride 106 mmol/L (98-107); Estimated CRCL calculation 53 ml/min; Estimated Glomerular Filt Rate 44; Glucose 110 mg/dL (65-110); Potassium 3.7 mmol/L (3.4-5.0); Sodium 140 mmol/L (137-145)
[2022-08-31 21:34] VITALS: BP 154/78; PULSE 84; RESP 16; TEMP 36.9; O2SAT 98
== END 2022-08-31 21:35 | disposition home or self-care (01) ==
PROVIDERS: Emergency Provider Emergency Medicine; PCP Family Medicine Sports Medicine
DX: L03.113 Cellulitis of right upper limb (principal); I10 Essential (primary) hypertension; M19.90 Unspecified osteoarthritis, unspecified site; Z87.442 Personal history of urinary calculi
CPT/HCPCS: 36415; 80048; 85025; 96365; 99284; A9270; J0696

== ENCOUNTER 2022-12-12 20:42 | Emergency (ER) | payer OTHER, SELFPAY ==
--- NOTE | ~2022-12-12 | CT_ITS ---
EXAMINATION: CT abdomen pelvis wo con DATE: 12/13/2022 01:09 INDICATION: Right flank pain. Hematuria. TECHNIQUE: Computed tomography (CT) of the abdomen and pelvis was performed without intravenous contr ast. Automated exposure control and iterative reconstruction technique were employed. The dose-length product was 1324.74 mGy-cm. COMPARISON: CT abdomen and pelvis 02/27/2022 FINDINGS: The visualized portions of the lung bases demonstrate mild atelectasis. Emphysema is noted. No pleural effusion. The heart size is normal. There is a small pericardial effusion. Calcifications in the liver and spleen are consistent with old granulomatous disease. The gallbladder, pancreas, an d adrenal glands are normal. There are 16 mm and 1 mm stones in right kidney. There are cysts in left kidney measuring up to 7 mm. There is mild left hydronephrosis with urothelial thickening of the pro ximal left ureter and fat stranding around the proximal left ureter. There is a 13 mm stone in left r enal pelvis. The prostate is mildly enlarged. There are no dilated loops of bowel. The appendix is no rmal. There are no pathologically enlarged lymph nodes. There is no free intraperitoneal fluid. There is severe lumbar spondylosis. IMPRESSION: 1. 13 mm stone in the left renal pelvis with mild left hydronephrosis similar to 02/27/2022. 2. Nonobstructing right kidney stones. 3. Small pericardial effusion again seen. Reviewed, dictated and finalized at location E. IMPRESSION: 1. 13 mm stone in the left renal pelvis with mild left hydronephrosis similar t o 02/27/2022. 2. Nonobstructing right kidney stones. 3. Small pericardial effusion again seen.
[2022-12-12 20:52] VITALS: BP 140/69; PULSE 98; RESP 18; TEMP 36.5; O2SAT 97
[2022-12-12 21:04] LABS: Basophils Percent Auto 0.5 % (0.2-1.2); Eosinophils Absolute Auto 0.3 K/mm3 (0-0.3); Eosinophils Percent Auto 5.6 % (0-4.4); Hematocrit 39.3 % (42.0-52.0); Immature Granulocyte Absolute 0.02 K/mm3 (0.00-0.031); Immature Granulocyte Percent A 0.4 % (0-0.5); Lymphocytes Absolute Auto 0.99 K/mm3 (0.9-3.2); Lymphocytes Percent Auto 17.4 % (18.3-44.2); Mean Corpuscular HGB Conc 33.1 g/dl (32-36); Mean Corpuscular Hemoglobin 30.5 pg (26-34); Mean Corpuscular Volume 92.3 fl (80-100); Mean Platelet Volume 9.8 fl (7.4-10.4); Monocytes Absolute Auto 0.4 K/mm3 (0.1-0.6); Monocytes Percent Auto 6.5 % (2.6-8.5); Neutrophils Percent Auto 69.6 % (45.5-73.1); Platelet Count Result 194 k/mm3 (150-375); Red Blood Count 4.26 M/mm3 (4.6-6.20); White Blood Count 5.7 K/mm3 (4.5-10.0)
[2022-12-12 21:14] LABS: Alanine Aminotransferase 18 U/L (6-50); Albumin Level 3.8 g/dL (3.5-5.1); Alkaline Phosphatase 62 U/L (38-126); Anion Gap 6 mmol/L (8-16); Aspartate Amino Transferase 25 U/L (17-59); Bilirubin,Total 0.4 mg/dL (0.2-1.3); Blood Urea Nitrogen 39 mg/dL (9-20); Carbon Dioxide 25 mmol/L (22-30); Chloride 111 mmol/L (98-107); Estimated CRCL calculation 38 ml/min; Estimated Glomerular Filt Rate 29; Glucose 114 mg/dL (65-110); Potassium 3.7 mmol/L (3.4-5.0); Sodium 142 mmol/L (137-145)
[2022-12-12 21:22] LABS: Appearance Urine Cloudy (Clear); Bacteria Urine None Seen /hpf; Bilirubin Urine Negative (Negative); Blood Urine 3+ (Negative); Color Urine Yellow (Yellow); Glucose Urine UA Negative (Negative); Ketones Urine Negative (Negative); Leukocyte Esterase Ur 2+ LEU/UL (Negative); Nitrate Urine Negative (Negative); Non Pathogenic Casts 0-2; Protein Urine 1+ mg/dL (Negative); RBC Urine 21-50 /hpf (0-2); Specific Grav Ur 1.024 (1.001-1.035); Squamous Epithelial Cell Urine None seen /hpf (Few); WBC Urine 21-50 /hpf
[2022-12-12 21:28] LABS: Add Urine Microscopic? YES
[2022-12-12 23:29] VITALS: O2SAT 98
[2022-12-12 23:31] VITALS: BP 165/92; PULSE 88; O2SAT 97
[2022-12-13] VITALS (23 sets, daily range): BP systolic 139–170; BP diastolic 77–146; PULSE 78–86; RESP 16; O2SAT 93–100
[2022-12-13] MEDS: SODIUM CHLORIDE 0.9% IV 1,000 ML 999 ML IV CONT ×3 (00:34→04:35)
[2022-12-13] MEDS: ONDANSETRON INJ 4 MG/2 ML VIAL IV PUSH (00:35)
[2022-12-13] MEDS: MORPHINE SULFATE (*CRX) 4 MG/ML INJ IV PUSH ×2 (00:35→02:49)
--- NOTE | 2022-12-13 01:01 | ED.BACK ---
HPI - Back Pain/Injury General Chief Complaint: Back Pain/Injury <JUANA Goldberg Last Filed: 12/13/22 04:40> Stated Complaint: Right flank pain/back pain <JUANA Goldberg Last Filed: 12/13/22 04:40> Time Seen by Provider: 12/12/22 23:20 <JUANA Goldberg Last Filed: 12/13/22 04:40> Source: patient <JUANA Goldberg Last Filed: 12/13/22 04:40> Mode of arrival: ambulatory <JUANA Goldberg Last Filed: 12/13/22 04:40> Limitations: no limitations <JUANA Goldberg Last Filed: 12/13/22 04:40> History of Present Illness HPI Narrative: Patient is a 62-year-old male who presents to the ED with report of right flank/mid back pain. Patient reports the pain first began on Tuesday. It was more mild at first, but has become more persistent and severe since . Pain worse with movement and laying on his right side. He has tried taking Tylenol and ibuprofen without improvement. He denies significant radiation of the pain to his abdomen or down his leg. He states he was diagnosed with a left-sided kidney stone within the last few months and the pain feels somewhat similar. He denies any nausea, vomiting, diarrhea, constipation, fevers, dysuria, hematuria. <JUANA Goldberg Last Filed: 12/13/22 04:40> Related Data Home Medications: Home Medications Medication Instructions Recorded Confirmed bupropion HCl 150 mg tablet,12 hr 150 mg PO BID 05/08/19 05/08/19 sustained-release escitalopram oxalate 20 mg tablet 20 mg PO DAILY 05/08/19 05/08/19 fenofibrate nanocrystallized 145 145 mg PO DAILY 05/08/19 05/08/19 mg tablet hydrochlorothiazide 25 mg tablet 25 mg PO DAILY 05/08/19 05/08/19 meloxicam 15 mg tablet 15 mg PO DAILY 05/08/19 05/08/19 metoprolol succinate 50 mg 50 mg PO DAILY 05/08/19 05/08/19 tablet,extended release 24 hr allopurinol 300 mg tablet 05/05/20 05/05/20 amlodipine 5 mg tablet 05/05/20 hydrochlorothiazide 12.5 mg tablet 05/26/21 <Coco Valdez PA-C - Last Filed: 12/13/22 04:40> Allergies/Adverse Reactions: Allergies Allergy/AdvReac Type Severity Reaction Status Date / Time No Known Allergies Allergy Verified 12/12/22 20:57 <Coco Valdez PA-C - Last Filed: 12/13/22 04:40> Review of Systems Review of Systems: CONSTITUTIONAL: Denies fever, chills, or sweats. CARDIOVASCULAR: Denies chest pain. RESPIRATORY: Denies dyspnea. GASTROINTESTINAL: Denies abdominal pain, nausea, vomiting, or diarrhea. GENITOURINARY: Denies dysuria or hematuria. SKIN: Denies rash or itching. MUSCULOSKELETAL: See HPI. NEUROLOGIC: Denies headache, numbness, or weakness. <Coco Valdez PA-C - Last Filed: 12/13/22 04:40> All systems reviewed & are unremarkable except as noted in HPI and below <Coco Valdez PA-C - Last Filed: 12/13/22 04:40> [facility] Past Medical History Medical History: Medical History Degenerative disc disease History of kidney stones Hypertension Osteoarthritis <Coco Valdez PA-C - Last Filed: 12/13/22 04:40> Surgical History Surgical History: Surgical History No pertinent past surgical history <Coco Valdez PA-C - Last Filed: 12/13/22 04:40> Social History Social History: Social History Smoking status: Never smoker Gender identity (if verbalized by the patient): Male <Coco Valdez PA-C - Last Filed: 12/13/22 04:40> Exam Narrative: GENERAL: Well appearing, obese with BMI 36.0, non-toxic, in no acute distress. HEAD: Normocephalic, atraumatic. NECK: Supple. No adenopathy, no masses. RESPIRATORY: Airway patent, respirations nonlabored. Clear to auscultation bilaterally, no rales, rhonchi, wheezi
[2022-12-13 05:52] LABS: Anion Gap 7 mmol/L (8-16); Blood Urea Nitrogen 31 mg/dL (9-20); Calcium 7.8 mg/dL (8.4-10.2); Carbon Dioxide 23 mmol/L (22-30); Chloride 113 mmol/L (98-107); Estimated CRCL calculation 48 ml/min; Estimated Glomerular Filt Rate 38; Glucose 95 mg/dL (65-110); Potassium 3.5 mmol/L (3.4-5.0); Sodium 143 mmol/L (137-145)
== END 2022-12-13 07:05 | disposition home or self-care (01) ==
PROVIDERS: Emergency Provider Emergency Medicine; PCP Family Medicine Sports Medicine
DX: N13.2 Hydronephrosis with renal and ureteral calculous obstruction (principal); N10 Acute pyelonephritis; I10 Essential (primary) hypertension; M19.90 Unspecified osteoarthritis, unspecified site; Z87.442 Personal history of urinary calculi
CPT/HCPCS: 36415; 74176; 80048; 80053; 81001; 85025; 87086; 96361; 96365; 96375; 96376; 99284; J0696; J2270; J2405; J7030